=== PATIENT | female | born 1990 | race Caucasian/White ===

== ENCOUNTER 2018-10-21 11:05 | Emergency (ER) | payer OTHER ==
[2018-10-21 11:46] VITALS: BP 115/77
--- NOTE | 2018-10-21 12:06 | UC ---
Eye Complaint HPI - HPI Summary HPI Summary: 1.right eye redness x 1 day woke up this morning with right eye redness, irritation tearing , cannot keep the eye open, c/o right eye pain , painful to touch burred vision , no eye injury , no photophobia , no n/v, no headache 2. dizziness/ lightheadedness x 2 months, no n/v/d/c, no chest pain , no headaches, worse with movements, better at rest and sitting down - History of Current Complaint Chief Complaint: UCEye Stated Complaint: RIGHT EYE CONCERN Time Seen by Provider: 10/21/18 11:38 Hx Obtained From: Patient Hx Last Menstrual Period: 10/20/18 ?: No Onset/Duration: Sudden Onset, Lasting Days - 1, Still Present Timing: Constant Severity Initially: Moderate Severity Currently: Moderate Pain Intensity: 0 Location of Injury: Other - no injury Character: Dull Aggravating Factor(s): Other - touch Alleviating Factor(s): Nothing Associated Signs And Symptoms: Positive: Drainage (Clear), Vision Impairment Bilateral. Negative: Photophobia, Drainage (Purulent) - Allergies/Home Medications Allergies/Adverse Reactions: Allergies Allergy/AdvReac Type Severity Reaction Status Date / Time amoxicillin Allergy Rash Verified 10/21/18 11:40 cefoxitin [From Mefoxin] Allergy Rash Verified 10/21/18 11:40 milnacipran [From Savella] Allergy Vomiting Verified 10/21/18 11:40 Penicillins Allergy Rash Verified 10/21/18 11:40 Home Medications: Home Medications DULoxetine DR CAP* [Cymbalta CAP*] 1 tab PO QAM 10/21/18 [History Confirmed 01/30] Gabapentin CAP(*) [Neurontin 100 mg CAP(*)] 200 mg TID 10/21/18 [History Confirmed 10/21/18] Nabumetone TAB* [Relafen TAB*] 500 mg PO BID PRN 10/21/18 [History Confirmed 01/30] Norgestimate-Ethinyl Estradiol [Ortho Tri-Cyclen 28 Tablet] 1 tab PO DAILY 10/21 [History Confirmed 10/21/18] PMH/Surg Hx/FS Hx/Imm Hx - Additional Past Medical History Additional PMH: Arthritis Fibromyalgia - Surgical History Surgical History: Yes Surgery Procedure, Year, and Place: LEFT SHOULDER - Family History Known Family History: Negative: Diabetes - Social History Alcohol Use: Rare Substance Use Type: None Substance Use Comment - Amount & Last Used: hx opiate addiction Smoking Status (MU): Never Smoked Tobacco Review of Systems All Other Systems Reviewed And Are Negative: Yes Constitutional: Positive: Negative Skin: Positive: Negative Eyes: Positive: Blurred Vision, Drainage, Eye Redness ENT: Positive: Negative Respiratory: Positive: Negative Cardiovascular: Positive: Negative Is Patient Immunocompromised?: No Physical Exam Triage Information Reviewed: Yes Appearance: Pain Distress, Obese Vital Signs: Initial Vital Signs Temp 96.7 F 10/21/18 11:42 Pulse 64 10/21/18 11:42 Resp 16 10/21/18 11:42 BP 115/77 10/21/18 11:42 Pulse Ox 100 10/21/18 11:42 Vital Signs Reviewed: Yes Eyes: Positive: Conjunctiva Inflamed - right eye, Discharge - clear discharge ENT: Positive: Normal ENT inspection, Hearing grossly normal, Pharynx normal, Pharyngeal erythema Neck: Positive: Supple, Nontender, No Lymphadenopathy Respiratory: Positive: Chest non-tender, Lungs clear, Normal breath sounds Cardiovascular: Positive: RRR, No Murmur, Pulses Normal Skin Exam: Normal Eye Complaint Course/Dx - Differential Dx/Diagnosis Provider Diagnosis: Blurred vision, right eye, Lightheaded Discharge - Sign-Out/Discharge Documenting (check all that apply): Patient Departure All imaging exams completed and their final reports reviewed: No Studies - Discharge Plan Condition: Stable Disposition: HOME Patient Education Materials: Lightheadedness (ED), Blurred Vision (ED) Referrals: Jet Soto [Primary Care Provider] - Salomon Desai MD [Medical Doctor] - As Soon As Possible Additional Instructions: red eye/ pain with vision changes will have you see the eye doctor today for evaluation and tx. for dizziness/ lightheadedness : will check CBC, CMP and TSH please call the office in 2 days for your labs results follow up with your pcp in 1 week - Billing Disposition and Condition Condition: STABLE Disposition: Home
[2018-10-21 19:28] LABS: ABS Eosinophils 0.1 10^3/ul (0-0.6); ABS Lymphocytes 2.3 10^3/ul (1.0-4.8); ABS Monocytes 0.3 10^3/ul (0-0.8); ABS Neutrophils 2.2 10^3/ul (1.5-7.7); Eosinophil % 2.7 %; Hematocrit 43 % (35-47); Mean Corpuscular HGB Conc 35 g/dL (31-36); Mean Corpuscular Hemoglobin 31 pg (27-31); Mean Corpuscular Volume 90 fL (80-97); Nucleated Red Blood Cells % 0.1; Platelet Count 350 10^3/uL (150-450); Red Blood Count 4.81 10^6 /uL (3.70-4.87); Red Cell Distribution Width 14 % (10-15); White Blood Count 4.9 10^3/uL (3.5-10.8)
[2018-10-21 19:40] LABS: Albumin 4.7 g/dL (3.2-5.2); Calcium 10.6 mg/dL (8.6-10.3); Potassium 4.6 mmol/L (3.5-5.0); Total Bilirubin 0.7 mg/dL (0.2-1.0)
[2018-10-21 19:46] LABS: Albumin/Globulin Ratio 1.6 (1-3); BUN/Creatinine Ratio 18.3 (8-20); EGFR Non-African American 96.7 (>60); Globulin 2.9 g/dL (2-4); Total Protein 7.6 g/dL (6.4-8.9)
[2018-10-21 23:00] LABS: TSH (Thyroid Stimulating Horm) 1.92 mcIU/mL (0.34-5.60)
== END 2018-10-21 12:21 | disposition home or self-care (01) ==
LOC: UCCORT 11:05
DX: H53.8 Other visual disturbances (principal); R42 Dizziness and giddiness; Z88.0 Allergy status to penicillin; Z88.1 Allergy status to other antibiotic agents; M79.7 Fibromyalgia; M19.90 Unspecified osteoarthritis, unspecified site
CPT/HCPCS: 36415; 80053; 84443; 85025; 99212; G0463